=== PATIENT | male | born 1940 | race Two or more races ===

== ENCOUNTER 2016-12-08 13:04 | Emergency (ER) | payer OTHER ==
[~2016-12-08] VITALS: Ht 165.1 cm; Wt 81.6 kg
[2016-12-08 13:26] VITALS: BP 150/83
[2016-12-08 14:20] LABS: Basophils # (auto) 0.1 uL; Basophils % (auto) 0.6 % (0.0-2.0); Eosinophils # (auto) 0.1 uL; Hematocrit 42.6 % (41.0-53.0); Hemoglobin 14.2 g/dL (13.5-17.5); Lymphocytes # (auto) 2.2 uL; Mean Corpuscular Hemoglobin 29.6 pg (28.0-32.0); Mean Corpuscular Hgb Conc. 33.3 g/dL (32.0-36.0); Mean Corpuscular Volume 88.8 fL (80.0-100.0); Mean Platelet Volume 7.5 fL (7.4-10.4); Monocytes # (auto) 1.2 uL; Monocytes % (auto) 13.5 % (0.0-12.0); Neutrophils # (auto) 5.6 uL; Neutrophils % (auto) 60.9 % (37.0-80.0); Platelet Count (auto) 339 10^3/uL (140-450); Red Cell Distribution Width 14.5 % (11.6-16.0); White Blood Cell 9.2 10^3/uL (4.4-10.8)
== END 2016-12-08 15:16 | disposition home or self-care (01) ==
LOC: ER 13:10
DX: J40 Bronchitis, not specified as acute or chronic (principal); E78.5 Hyperlipidemia, unspecified
CPT/HCPCS: 36415; 71020; 85025

== ENCOUNTER 2019-12-20 15:56 | Emergency (ER) | payer OTHER ==
[~2019-12-20] VITALS: Ht 165.1 cm; Wt 78.5 kg
[2019-12-20 16:32] LABS: Urine Bacteria FEW /hpf (None Seen); Urine Blood Negative /uL (Negative); Urine Specific Gravity 1.003 (1.001-1.035); Urine Sperm PRESENT /hpf (None Seen); Urine WBC <1 /hpf (0 - 3)
[2019-12-20 19:07] VITALS: BP 183/98
[2019-12-20] MEDS ORDERED: cloNIDine HCL 0.1 MG TAB PO ONE (19:30)
== END 2019-12-20 20:00 | disposition home or self-care (01) ==
LOC: ER 16:11
DX: I10 Essential (primary) hypertension (principal); E78.5 Hyperlipidemia, unspecified
CPT/HCPCS: 81001

== ENCOUNTER 2019-12-22 14:14 | Emergency (ER) | payer OTHER ==
[~2019-12-22] VITALS: Ht 165.1 cm; Wt 75.7 kg
[2019-12-22 14:48] VITALS: BP 141/74
== END 2019-12-22 17:15 | disposition home or self-care (01) ==
LOC: ER 14:14
DX: I10 Essential (primary) hypertension (principal); E78.5 Hyperlipidemia, unspecified

== ENCOUNTER 2021-12-01 18:45 | Inpatient (IN) | payer OTHER, MEDICAID ==
[~2021-12-01] VITALS: Ht 167.6 cm; Wt 79.0 kg
[2021-12-01] MEDS ORDERED: ONDANSETRON HCL 4 MG/2 ML VIAL ONE (19:43)
[2021-12-01] MEDS ORDERED: ONDANSETRON HCL 4 MG/2 ML VIAL IV ONE (19:45)
[2021-12-01 22:39] LABS: Basophils # (auto) 0.1 10 ^3/uL (0-0.2); Basophils % (auto) 0.9 % (0.0-2.0); Eosinophils # (auto) 0 10 ^3/uL (0-0.8); Hematocrit 33.9 % (41.0-53.0); Hemoglobin 12.3 g/dL (13.5-17.5); Lymphocytes # (auto) 0.7 10 ^3/uL (0.4-5.4); Lymphocytes % (auto) 5.6 % (10.0-50.0); Mean Corpuscular Hemoglobin 31.5 pg (28.0-32.0); Mean Corpuscular Hgb Conc. 36.4 g/dL (32.0-36.0); Mean Corpuscular Volume 86.4 fL (80.0-100.0); Monocytes # (auto) 0.6 10 ^3/uL (0-1.3); Monocytes % (auto) 5.2 % (0.0-12.0); Neutrophils # (auto) 10.9 10 ^3/uL (1.6-8.6); Neutrophils % (auto) 88.3 % (37.0-80.0); Nucleated Red Blood Cells % 0.1 %; Red Blood Cells 3.92 10^6/uL (4.5-5.90); Red Cell Distribution Width 13.3 % (11.8-14.3); White Blood Cell 12.4 10^3/uL (4.4-10.8)
[2021-12-01 22:44] LABS: Albumin 4.2 g/dL (3.4-5.0)
[2021-12-01 22:53] LABS: BUN/Creatinine Ratio 14.3; Bilirubin, Total 1.1 mg/dL (0.2-1.0); Calcium 8.7 mg/dL (8.5-10.1); Total Protein 8.1 g/dL (6.4-8.2)
[2021-12-01 23:02] LABS: Potassium 2.9 mmol/L (3.5-5.1)
[2021-12-01] MEDS ORDERED: SOD CHL 0.9%/ KCL 40MEQ 1,000 ML IV ONE (23:30)
[2021-12-01] MEDS ORDERED: POTASSIUM CHL 20MEQ/50ML 50 ML IV ONE (23:45)
[2021-12-01] MEDS ORDERED: SODIUM CHLORIDE 0.9% 1,000 ML IV ONE (23:45)
[2021-12-02] MEDS ORDERED: MORPHINE SULFATE INJECTION 2 MG/ML SYRG IV PRN (00:45)
[2021-12-02] MEDS ORDERED: SODIUM CHL 3% 500 ML IV ONE (00:45)
[2021-12-02] MEDS ORDERED: ACETAMINOPHEN 325 MG TAB PO PRN (00:45)
[2021-12-02] MEDS ORDERED: ONDANSETRON HCL 4 MG/2 ML VIAL IV PRN (00:45)
[2021-12-02] MEDS ORDERED: NITROGLYCERIN 0.4 MG SL TAB SL PRN (00:45)
[2021-12-02] MEDS ORDERED: POTASSIUM CHL 20 Meq TABLET PO ONE (00:45)
[2021-12-02] MEDS ORDERED: DEXTROSE (50%) 50ML SYRG IV PRN (00:45)
[2021-12-02 03:52] LABS: Hematocrit 30.7 % (41.0-53.0); Hemoglobin 11.7 g/dL (13.5-17.5)
[2021-12-02 06:43] LABS: Urine Bacteria NONE SEEN /hpf (None Seen); Urine Blood Negative /uL (Negative); Urine Specific Gravity 1.017 (1.001-1.035); Urine WBC 1 /hpf (0 - 3)
[2021-12-02] MEDS: InsuLIN REG 1unit/0.01ml Soln (100units/ml) SC SCH ×4 (07:00→21:20)
[2021-12-02] MEDS: ACCU-CHEK COMFORT CURVE STRIP VI SCH ×4 (07:51→21:20)
[2021-12-02] MEDS ORDERED: cefTRIAXone 1GM/50ML D5W 50 ML IV SCH (08:00)
[2021-12-02] MEDS ORDERED: PANTOPRAZOLE 40 MG TAB PO SCH (10:00)
[2021-12-02] MEDS: METOPROLOL SUCCINATE XL 50 MG TAB PO SCH (10:00)
[2021-12-02] MEDS: LOSARTAN POTASSIUM 50 MG TAB PO SCH (10:42)
[2021-12-02] MEDS: amLODIPine BESYLATE 5 MG TAB PO SCH (10:42)
[2021-12-02] MEDS: ENOXAPARIN SOD 40 MG/0.4 ML SYRINGE SC SCH (10:43)
[2021-12-02 12:21] LABS: Lactic Acid w/Reflex 2.3 mmol/L (0.4-2.0)
[2021-12-02 13:58] LABS: Basophils # (auto) 0 10 ^3/uL (0-0.2); Basophils % (auto) 0.1 % (0.0-2.0); Eosinophils # (auto) 0 10 ^3/uL (0-0.8); Eosinophils % (auto) 0.1 % (0.0-7.0); Hematocrit 31.6 % (41.0-53.0); Hemoglobin 11.6 g/dL (13.5-17.5); Lymphocytes # (auto) 1.2 10 ^3/uL (0.4-5.4); Lymphocytes % (auto) 10.6 % (10.0-50.0); Mean Corpuscular Hemoglobin 31.4 pg (28.0-32.0); Mean Corpuscular Hgb Conc. 36.7 g/dL (32.0-36.0); Mean Corpuscular Volume 85.6 fL (80.0-100.0); Monocytes # (auto) 1.2 10 ^3/uL (0-1.3); Monocytes % (auto) 10.2 % (0.0-12.0); Neutrophils # (auto) 9.2 10 ^3/uL (1.6-8.6); Red Blood Cells 3.69 10^6/uL (4.5-5.90); Red Cell Distribution Width 13.5 % (11.8-14.3); White Blood Cell 11.6 10^3/uL (4.4-10.8)
[2021-12-02] MEDS ORDERED: POTASSIUM CHLORIDE 20 MEQ, LIDOCAINE 1% (LOCAL ANESTH.) 2 ML in SODIUM CHL 0.9% 100 ML IV ONE (14:15)
[2021-12-02] MEDS ORDERED: POTASSIUM EFFERVESENT TAB 25 MEQ PO ONE (14:15)
[2021-12-02] MEDS ORDERED: SODIUM CHLORIDE 0.9% 1,000 ML IV SCH (16:00)
[2021-12-02] MEDS ORDERED: MAGNESIUM SULFATE 1GM/100ML 100 ML IV ONE (16:00)
[2021-12-02] MEDS ORDERED: AML5T GT (16:45)
[2021-12-02] MEDS ORDERED: HYDR25TA5 GT (16:45)
[2021-12-02] MEDS ORDERED: TEMA15CA PO (16:45)
[2021-12-02] MEDS ORDERED: LOSA-39 PO (16:45)
[2021-12-02] MEDS ORDERED: ATOR40TA52 PO (16:45)
[2021-12-02] MEDS ORDERED: METF-370 PO (16:45)
[2021-12-02] MEDS ORDERED: METO25TA93 PO (16:45)
[2021-12-02 17:00] VITALS: BP 115/69
[2021-12-02 22:00] VITALS: BP 142/73
[2021-12-02] MEDS ORDERED: ATORVASTATIN 20 MG TAB PO SCH (22:00)
[2021-12-03 05:00] VITALS: BP 163/95
[2021-12-03 06:17] LABS: Albumin 3.5 g/dL (3.4-5.0); Potassium 3.3 mmol/L (3.5-5.1)
[2021-12-03 06:19] LABS: BUN/Creatinine Ratio 19.5
[2021-12-03 06:22] LABS: Bilirubin, Total 0.6 mg/dL (0.2-1.0); Total Protein 6.6 g/dL (6.4-8.2)
[2021-12-03] MEDS: ACCU-CHEK COMFORT CURVE STRIP VI SCH ×2 (06:26→11:21)
[2021-12-03] MEDS: InsuLIN REG 1unit/0.01ml Soln (100units/ml) SC SCH ×2 (06:26→11:22)
[2021-12-03 06:33] LABS: Basophils # (auto) 0.1 10 ^3/uL (0-0.2); Basophils % (auto) 0.8 % (0.0-2.0); Eosinophils # (auto) 0 10 ^3/uL (0-0.8); Hematocrit 32.9 % (41.0-53.0); Hemoglobin 11.9 g/dL (13.5-17.5); Lymphocytes # (auto) 1.4 10 ^3/uL (0.4-5.4); Lymphocytes % (auto) 19.1 % (10.0-50.0); Mean Corpuscular Hemoglobin 31.5 pg (28.0-32.0); Mean Corpuscular Volume 87.6 fL (80.0-100.0); Monocytes % (auto) 13.4 % (0.0-12.0); Neutrophils # (auto) 4.8 10 ^3/uL (1.6-8.6); Neutrophils % (auto) 66.7 % (37.0-80.0); Nucleated Red Blood Cells % 0.1 %; Red Blood Cells 3.76 10^6/uL (4.5-5.90); Red Cell Distribution Width 13.8 % (11.8-14.3); White Blood Cell 7.2 10^3/uL (4.4-10.8)
[2021-12-03 08:00] VITALS: BP 153/73
[2021-12-03] MEDS: METOPROLOL SUCCINATE XL 50 MG TAB PO SCH (08:50)
[2021-12-03] MEDS: LOSARTAN POTASSIUM 50 MG TAB PO SCH (08:51)
[2021-12-03] MEDS: amLODIPine BESYLATE 5 MG TAB PO SCH (08:51)
[2021-12-03] MEDS: ENOXAPARIN SOD 40 MG/0.4 ML SYRINGE SC SCH (08:52)
[2021-12-03 11:55] VITALS: BP 126/74
[2021-12-03] MEDS ORDERED: POTASSIUM CHL 20 Meq TABLET PO ONE (12:00)
[2021-12-03 16:00] VITALS: BP 139/65
== END 2021-12-03 18:00 | disposition home or self-care (01) | DRG 641 ==
LOC: EDUNIT# 18:45 → EDBD 18:45 → ER 18:53 → TELE 12-02 00:42 → TELE-WESTW 12-02 16:22
PROVIDERS: ADMIT Nurse Practitioner; ATTEND Internal Medicine
DX: E87.1 Hypo-osmolality and hyponatremia (principal); E87.6 Hypokalemia; E11.9 Type 2 diabetes mellitus without complications; D72.829 Elevated white blood cell count, unspecified; K40.90 Unilateral inguinal hernia, without obstruction or gangrene, not specified as recurrent; K44.9 Diaphragmatic hernia without obstruction or gangrene; N40.0 Benign prostatic hyperplasia without lower urinary tract symptoms; D64.9 Anemia, unspecified; E78.00 Pure hypercholesterolemia, unspecified; T50.2X5A Adverse effect of carbonic-anhydrase inhibitors, benzothiadiazides and other diuretics, initial encounter; R42 Dizziness and giddiness; Z20.822 Contact with and (suspected) exposure to COVID-19; I10 Essential (primary) hypertension
CPT/HCPCS: 36415; 70450; 71045; 74176; 80053; 81001; 82962; 83605; 83690; 83735; 83880; 84132; 84295; 84300; 84484; 85014; 85018; 85025; 87426; 93005; 93306; 96361; 96374; G0378; J0696; J2001; J2405

== ENCOUNTER 2022-10-22 17:47 | Emergency (ER) | payer OTHER, MEDICAID ==
[~2022-10-22] VITALS: Ht 172.7 cm; Wt 95.0 kg
[~2022-10-22 17:47] MED LIST: AML5T GT; ATOR40TA52 PO; LOSA-39 PO; METF-370 PO; METO25TA93 PO; TEMA15CA PO
[2022-10-22 18:48] LABS: Basophils # (auto) 0 10 ^3/uL (0-0.2); Basophils % (auto) 0.6 % (0.0-2.0); Eosinophils # (auto) 0 10 ^3/uL (0-0.8); Eosinophils % (auto) 0.6 % (0.0-7.0); Hematocrit 41.9 % (41.0-53.0); Hemoglobin 14.3 g/dL (13.5-17.5); Lymphocytes # (auto) 1.7 10 ^3/uL (0.4-5.4); Lymphocytes % (auto) 24.6 % (10.0-50.0); Mean Corpuscular Hemoglobin 31.3 pg (28.0-32.0); Mean Corpuscular Hgb Conc. 34.1 g/dL (32.0-36.0); Mean Corpuscular Volume 91.5 fL (80.0-100.0); Monocytes # (auto) 0.8 10 ^3/uL (0-1.3); Monocytes % (auto) 12.3 % (0.0-12.0); Neutrophils # (auto) 4.2 10 ^3/uL (1.6-8.6); Neutrophils % (auto) 61.9 % (37.0-80.0); Red Blood Cells 4.58 10^6/uL (4.5-5.90); Red Cell Distribution Width 13.9 % (11.8-14.3); White Blood Cell 6.7 10^3/uL (4.4-10.8)
[2022-10-22 19:04] LABS: INR 1.01 (0.9-1.15); Partial Thromboplastin Time 27.9 sec (24.6-33.4)
[2022-10-22 19:06] LABS: Albumin 4.2 g/dL (3.4-5.0); BUN/Creatinine Ratio 21.1; Calcium 9.7 mg/dL (8.5-10.1); Potassium 3.7 mmol/L (3.5-5.1)
[2022-10-22 19:09] LABS: Bilirubin, Total 0.5 mg/dL (0.2-1.0); Total Protein 8.4 g/dL (6.4-8.2)
[2022-10-22] MEDS ORDERED: levoFLOXacin 500MG 100 ML IV ONE (20:00)
[2022-10-22 20:42] LABS: Urine Bacteria NONE SEEN /hpf (None Seen); Urine Blood Negative /uL (Negative); Urine Specific Gravity 1.005 (1.001-1.035); Urine WBC 1 /hpf (0 - 3)
[2022-10-22 23:00] VITALS: BP 140/78
[2022-10-22] MEDS ORDERED: metFORMIN HYDROCHLORIDE 500 MG TAB PO ONE (23:30)
== END 2022-10-23 01:09 | disposition home or self-care (01) ==
LOC: ER 17:47 → EDBD 17:47 → ER 10-23 01:09
DX: A41.9 Sepsis, unspecified organism (principal); N39.0 Urinary tract infection, site not specified; J84.89 Other specified interstitial pulmonary diseases; R41.82 Altered mental status, unspecified; E11.9 Type 2 diabetes mellitus without complications; I10 Essential (primary) hypertension; E78.5 Hyperlipidemia, unspecified; Z79.899 Other long term (current) drug therapy; Z20.822 Contact with and (suspected) exposure to COVID-19
CPT/HCPCS: 36415; 70450; 71045; 80053; 81001; 82962; 83880; 84443; 84484; 85025; 85610; 85730; 87040; 87426; 87804; 87807; 93005; 96365; 99284; J1956

== ENCOUNTER 2024-12-05 23:27 | Emergency (ER) | payer OTHER, MEDICAID ==
[~2024-12-05] VITALS: Ht 162.6 cm; Wt 77.9 kg
[~2024-12-05 23:27] MED LIST changes: -LOSA-39 PO; +LOSA-535 PO
[2024-12-06 00:19] LABS: Basophils # (auto) 0.1 10 ^3/uL (0-0.2); Basophils % (auto) 1.2 % (0.0-2.0); Eosinophils # (auto) 0.1 10 ^3/uL (0-0.8); Hematocrit 41.4 % (41.0-53.0); Hemoglobin 14.1 g/dL (13.5-17.5); Lymphocytes # (auto) 1.5 10 ^3/uL (0.4-5.4); Mean Corpuscular Hemoglobin 30.7 pg (28.0-32.0); Mean Corpuscular Volume 90.3 fL (80.0-100.0); Monocytes # (auto) 1.1 10 ^3/uL (0-1.3); Monocytes % (auto) 10.3 % (0.0-12.0); Neutrophils # (auto) 7.8 10 ^3/uL (1.6-8.6); Neutrophils % (auto) 73.5 % (37.0-80.0); Platelet Count (auto) 271 10^3/uL (140-450); Red Blood Cells 4.58 10^6/uL (4.5-5.90); White Blood Cell 10.6 10^3/uL (4.4-10.8)
--- NOTE | 2024-12-06 00:21 | ED.PDOC ---
General HPI Comments HPI: Poor Historian. 84-year-old male presents to the emergency department for Hoyos catheter dysfunction. Patient had his Hoyos catheter replaced this morning at a [facility] clinic. Patient has been having this Hoyos catheter for the at least the last eight months. Today he went for his routine replacement. Patient noticed some bleeding in his Hoyos catheter bag proximally 2 hours after the insertion of the new Hoyos. Patient has not been able to void any urine from his Hoyos catheter and he came here to the ER for evaluation. Initially patient was tachycardic and in some distress. We flushed the Hoyos catheter and inflated the balloon and patient was able to void urine normally in his symptoms have resolved. The color of the bag urine is serosanguineous. Patient is on aspirin only. Patient states that he was given a prescription of antibiotics after the Hoyos catheter replacement today at the clinic. Past Medcial History: Diabetes, hypertension, hyperlipidemia, indwelling Hoyos catheter. Past Surgical History: Eye surgery, hernia surgery. REVIEW OF SYSTEMS: CONSTITUTIONAL: Denies acute: fever, diaphoresis, chills, generalized weakness. HEAD: Denies acute: headache, photophobia Eyes: Denies acute: Double vision, vision loss, eye pain, eye discharge. EARS: Denies acute: tinnitus, hearing loss, ear discharge, ear pain, THROAT: Denies acute: sore throat, swelling, difficulty swallowing , pain with swallowing, change in voice. NECK: Denies acute: neck pain, neck swelling, stiff neck. HEART: Denies acute : chest pain, palpitations, LUNGS: Denies acute: SOB, wheezing, cough, hemoptysis ABDOMEN: Denies acute: abdominal pain, Nausea, Vomiting, diarrhea, melena , hematemesis, hematochezia SKIN: Denies acute: rash, redness, lesions, itchiness. EXTREMITIES: Denies acute: calf pain, numbness, tingling, weakness, denies pain in extremity. Denies acute: Low back pain. Neuro: Denies acute: focal neurological deficit, motor or sensory focal neurological deficit, tremors, seizure like activity, confusion, dizziness, change in mental status, loss of bowel or bladder function, cauda equina like symptoms. : Denies acute: dysuria, hematuria, flank pain, increase in urinary frequency. PSYCH: Denies acute: hallucination, suicidal ideation, homicidal ideation. PHYSICAL EXAM: General: no acute distress, awake and alert. Head: normocephalic, atraumatic. Neck: supple, trachea is midline, no swelling. Throat: Normal phonation. Eyes:, no erythema, no purulent discharge, no proptosis, no icterus. Heart: regular rate, regular rhythm, no significant murmur appreciated. Lungs: no apparent respiratory distress, Able to speak in full sentences. No wheezing, no rhonchi, no crackles. No stridors Clear to auscultation bilaterally. Abdomen: non tender to palpation, non distended, soft, no guarding, no rebound, + bowel sounds. Neuro: Awake, Alert, oriented to name, self, situation, follows commands GCS=15. Speech is normal. Skin: no petechia, no purpura, no cyanosis, non-pale, not jaundice. Lower extremities: --no - Pitting edema no deformity, no focal swelling, no calf TTP. Makes eye contact. moves all four extremities. Face: no apparent facial droop. Ambulating in the ED independently. Time Seen by MD: 23:56 Primary Care Provider: NONE Reviewed notes: Nurses Notes, Allergies Allergies: Coded Allergies: NO KNOWN ALLERGIES (Unverified , 12/08/16) Home Meds Reported Medications Atorvastatin Calcium (ATORVASTATIN CALCIUM) 40 Mg Tab, 40 MG PO DAILY, TAB 12/02/21 Temazepam (Temazepam) 15 Mg Cap, 15 MG PO, CAP 12/02/21 Losartan Potassium (Losartan Potassium) 100 Mg Tab, 100 MG PO, TAB 12/02/21 Metoprolol Succinate (Metoprolol Succinate Er) 25 Mg Tab, 25 MG PO, TAB 12/02/21 Metformin Hydrochloride (Metformin Hcl) 500 Mg Tab, 500 MG PO, TAB 12/02/21 Amlodipine Besylate (NORVASC TABLET) 5 Mg Tb, 5 MG GT, TAB 12/02/21 Information Source: Patient Past Medical History PAST MEDICAL HISTORY: DM, High Lipids, HTN Surgical History: Denies all surgeries Family History Family History: Reviewed,noncontributory to illness Social History Smoker: Non-Smoker Alcohol: Denies ETOH Use Drugs: Denies Drug Use Lives In: Home X-Ray, Labs, Meds, VS Vital Signs Date Time Temp Pulse Resp B/P (MAP) Pulse Ox O2 Delivery O2 Flow Rate FiO2 1/7/25 23:50 98.4 117 18 144/87 (106) 96 Lab Test 12/06/24 00:08 Range/Units White Blood Count 10.6 4.4-10.8 10^3/uL Red Blood Count 4.58 4.5-5.90 10^6/uL Hemoglobin 14.1 13.5-17.5 g/dL Hematocrit 41.4 41.0-53.0 % Mean Corpuscular Volume 90.3 80.0-100.0 fL Mean Corpuscular Hemoglobin 30.7 28.0-32.0 pg Mean Corpuscular Hemoglobin Concent 34.0 32.0-36.0 g/dL Red Cell Distribution Width 15.0 H 11.8-14.3 % Platelet Count 271 140-450 10^3/uL Mean Platelet Volume 7.3 6.9-10.8 fL Neutrophils (%) (Auto) 73.5 37.0-80.0 % Lymphocytes (%) (Auto) 14.0 10.0-50.0 % Monocytes (%) (Auto) 10.3 0.0-12.0 % Eosinophils (%) (Auto) 1.0 0.0-7.0 % Basophils (%) (Auto) 1.2 0.0-2.0 % Neutrophils # (Auto) 7.8 1.6-8.6 10 ^3/uL Lymphocytes # (Auto) 1.5 0.4-5.4 10 ^3/uL Monocytes # (Auto) 1.1 0-1.3 10 ^3/uL Eosinophils # (Auto) 0.1 0-0.8 10 ^3/uL Basophils # (Auto) 0.1 0-0.2 10 ^3/uL Nucleated Red Blood Cells 0.0 % Sodium Level 134 L 136-145 mmol/L Potassium Level 3.5 3.5-5.1 mmol/L Chloride Level 99 98-107 mmol/L Carbon Dioxide Level 27 20-31 mmol/L Anion Gap 8 5-15 Blood Urea Nitrogen 21 9-23 mg/dL Creatinine 1.16 0.700-1.30 mg/dL Glomerular Filtration Rate Calc 63 >90 mL/min BUN/Creatinine Ratio 18.1 10.0-20.0 Serum Glucose 132 H 74-106 mg/dL Calcium Level 10.6 H 8.7-10.4 mg/dL Total Bilirubin 0.9 0.2-1.0 mg/dL Aspartate Amino Transferase (AST) 28 13-40 U/L Alanine Aminotransferase (ALT) 29 7-40 U/L Alkaline Phosphatase 79 46-116 U/L Total Protein 7.9 5.7-8.2 g/dL Albumin 4.4 3.2-4.8 g/dL Departure 1 Departure Time of Disposition: 00:21 Impression: Primary Impression: Hoyos catheter problem Disposition: HOME / SELF CARE / HOMELESS Condition: Stable Additional Instructions: Additional discharge instructions: You MUST follow-up with your primary care/family doctor in 1 to 2 days. If you are unable to see your primary care/family doctor, please return to our emergency room for re-assessment and re-evaluation in 1 to 2 days. Return to the emergency room here in our facility or to the nearest ER [facility] if your symptoms change or worsen. CONSULTATIONS: you MUST Follow-up for consultation as soon as possible with: --urology in 1-2 days. Please call for appointment. You MUST call the consultants office yourself to make an appointment. You may need to arrange that through your insurance and/or your primary/family doctor. If you are unable to see the [facility] consultant in 1 to 2 days, you must return to our emergency room (or any other ER of your choice) for re-assessment and re- evaluation. Adequate fluid hydration. Discharged With: Self JUAN ALBERTO IBARRA DO Dec 06, 2024 00:21
[2024-12-06 00:34] LABS: Alanine Aminotransferase 29 U/L (7-40); Albumin 4.4 g/dL (3.2-4.8); Alkaline Phosphatase 79 U/L (46-116); Anion Gap 8 (5-15); Aspartate Aminotransferase 28 U/L (13-40); BUN/Creatinine Ratio 18.1 (10.0-20.0); Blood Urea Nitrogen 21 mg/dL (9-23); Carbon Dioxide 27 mmol/L (20-31); Chloride 99 mmol/L (98-107); Potassium 3.5 mmol/L (3.5-5.1)
[2024-12-06 00:35] LABS: Bilirubin, Total 0.9 mg/dL (0.2-1.0); Total Protein 7.9 g/dL (5.7-8.2)
[2024-12-06 00:44] LABS: Calcium 10.6 mg/dL (8.7-10.4); Glucose 132 mg/dL (74-106); Sodium 134 mmol/L (136-145)
[2024-12-06 02:09] VITALS: BP 157/85; PULSE 98; RESP 16; TEMP 97.5; O2SAT 96
== END 2024-12-06 02:35 | disposition home or self-care (01) ==
LOC: ER 23:27
DX: T83.038A Leakage of other urinary catheter, initial encounter (principal); E11.9 Type 2 diabetes mellitus without complications; E78.5 Hyperlipidemia, unspecified; I10 Essential (primary) hypertension; Z98.890 Other specified postprocedural states
CPT/HCPCS: 36415; 80053; 85025

== ENCOUNTER 2025-01-12 23:15 | Emergency (ER) | payer OTHER, MEDICAID ==
[~2025-01-12] VITALS: Ht 165.1 cm; Wt 76.9 kg
[2025-01-12 23:26] VITALS: BP 149/89; PULSE 108; RESP 18; O2SAT 99
[2025-01-13 00:12] LABS: Urine Bacteria FEW /hpf (None Seen); Urine Blood 3+ /uL (Negative); Urine Clarity Turbid (Clear); Urine Color Red (Yellow); Urine Protein, UAD 2+ (Negative); Urine Specific Gravity 1.012 (1.001-1.035); Urine Squamous Epithelial Cell None Seen /hpf (<5); Urine Urobilinogen Normal (Negative); Urine WBC 68 /HPF (0-3); Urine pH 6.5 (5.0-9.0)
--- NOTE | 2025-01-13 00:48 | DVH ---
INDICATION: Bilateral inguinal hernias TECHNIQUE: Multiple real-time grayscale transabdominal sonographic images of the pelvis. COMPARISON: None Findings/ IMPRESSION: Right-sided inguinal hernia measuring 1.9 cm with a 0.6 cm defect in the associated wall. Left-sided inguinal hernia demonstrating possible herniated loop of small bowel. These findings can be confirmed with CT if clinically indicated.
[2025-01-13] MEDS ORDERED: TRAM50TA2 PO (01:49)
[2025-01-13] MEDS ORDERED: ACET500T58 PO (01:49)
[2025-01-13] MEDS ORDERED: LEVO500T91 PO (01:49)
--- NOTE | 2025-01-13 01:50 | ED.PDOC ---
General Chief Complaint: Urinary Comments This patient is a pleasant Maldivian-speaking only 84-year-old male who was brought in by his son today for evaluation of urine retention concerns and pelvic swelling issues. Patient has a year long history of multiple complaints. According to the son, patient received bilateral inguinal hernia repair approximately one year ago. Son states the patient has had swelling and pain for the past several months. Additionally, according to the son, patient had a prostatectomy performed which sounds like a TURP procedure. Patient had a Hoyos catheter in place for an extended time that was removed approximately five days ago. Son states the patient has been displaying hematuria as well as difficulty urinating since this morning. Son denies any fever nausea or vomiting. Vital signs were stable on arrival. Time Seen by MD: 23:17 Primary Care Provider: NONE Reviewed notes: Nurses Notes Allergies: Coded Allergies: NO KNOWN ALLERGIES (Unverified , 12/08/16) Home Meds Reported Medications Atorvastatin Calcium (ATORVASTATIN CALCIUM) 40 Mg Tab, 40 MG PO DAILY, TAB 12/02/21 Temazepam (Temazepam) 15 Mg Cap, 15 MG PO, CAP 12/02/21 Losartan Potassium (Losartan Potassium) 100 Mg Tab, 100 MG PO, TAB 12/02/21 Metoprolol Succinate (Metoprolol Succinate Er) 25 Mg Tab, 25 MG PO, TAB 12/02/21 Metformin Hydrochloride (Metformin Hcl) 500 Mg Tab, 500 MG PO, TAB 12/02/21 Amlodipine Besylate (NORVASC TABLET) 5 Mg Tb, 5 MG GT, TAB 12/02/21 Information Source: Patient, Relative (Child) Mode of Arrival: Ambulatory Severity: Moderate Timing: Hours, Months Duration: Since onset Prehospital treatment: None Onset: Spontaneous Symptoms: Inability to void History of: Other (Long-term Hoyos catheter placement due to prostatectomy.) Location: Abdomen associated signs and symptoms: Abdominal Pain, Inability to Void Past Medical History PAST MEDICAL HISTORY: DM, High Lipids, HTN Past Medical History (Other): Prostate ectomy and long-term Hoyos catheter placement. Surgical History: Hernia Repair Surgical History (Other): History of bilateral inguinal hernia repair Family History Family History: Reviewed,noncontributory to illness Social History Smoker: Non-Smoker Alcohol: Denies ETOH Use Drugs: Denies Drug Use Lives In: Home Constitutional: denies: chills, diaphoresis, fatigue, fever, malaise, sweats, weakness, others EENTM: denies: blurred vision, double vision, ear bleeding, ear discharge, ear drainage, ear pain, ear ringing, eye pain, eye redness, hearing loss, mouth pain, mouth swelling, nasal discharge, nose bleeding, nose congestion, nose pain, photophobia, tearing, throat pain, throat swelling, voice changes, others Respiratory: denies: cough, hemoptysis, orthopnea, SOB at rest, shortness of breath, SOB with excertion, stridor, wheezing, others Cardiovascular: denies: chest pain, dizzy spells, diaphoresis, Dyspnea on exertion, edema, irregular heart beat, left arm pain, lightheadedness, palpitations, PND, syncope, others Gastrointestinal: denies: abdomen distended, abdominal pain, blood streaked bowels, constipated, diarrhea, dysphagia, difficulty swallowing, hematemesis, melena, nausea, poor appetite, poor fluid intake, rectal bleeding, rectal pain, vomiting, others Genitourinary: reports: others (Urine retention. Bilateral inguinal swelling); denies: burning, dysuria, flank pain, frequency, hematuria, incontinence, penile discharge, penile sore, pain, testicle pain, testicle swelling, urgency Neurological: denies: dizziness, fainting, headache, left sided numbness, left sided weakness, numbness, paresthesia, pre-existing deficit, right sided numbness, right sided weakness, seizure, speech problems, tingling, tremors, weakness, others Musculoskeletal: denies: back pain, gout, joint pain, joint swelling, muscle pain, muscle stiffness, neck pain, others Integumetry: denies: bruises, change in color, change in hair/nails, dryness, laceration, lesions, lumps, rash, wounds, others Allergic/Immunocompromised: denies: Difficulty Healing, Frequent Infections, Hives, Itching, others Hematologic/Lymphatic: denies: anemia, blood clots, easy bleeding, easy bruising, swollen glands, others Endocrine: denies: excessive hunger, excessive sweating, excessive thirst, excessive urination, flushing, intolerance to cold, intolerance to heat, unexplained weight gain, unexplained weight loss, others Psychiatric: denies: anxiety, bipolar disorder, depression, hopeless, panic d isorder, schizophrenia, sleepless, suicidal, others Physical Exam General Appearance: Moderate Distress (Due to urine retention and inguinal pain.), Normal HEENT: Normal ENT Inspection, Pharynx Normal, TMs Normal Neck: Full Range of Motion, Non-Tender, Normal, Normal Inspection Respiratory: Chest Non-Tender, Lungs Clear, No Accessory Muscle Use, No Respiratory Distress, Normal Breath Sounds Cardiovascular: No Edema, No JVD, No Murmur, No Gallop, Normal Peripheral Pulses, Regular Rate/Rhythm Breast Exam: Deferred Gastrointestinal: No Organomegaly, Non Tender, No Pulsatile Mass, Normal Bowel Sounds, Soft Genitalia: Other (Bilateral inguinal swelling noted with left-sided greater than right. No edema or ecchymosis. Left-sided inguinal hernia was not reducible.) Pelvic: Deferred Rectal: Deferred Extremities: No calf tenderness, Normal capillary refill, Normal inspection, Normal range of motion, Non-tender, No pedal edema Neurologic: Alert, No Motor Deficits, Normal Affect, Normal Mood, No Sensory Deficits Cerebellar Function: Normal Reflexes: Normal Skin: Dry, Normal Color, Warm Lymphatic: No Adenopathy Was a procedure done? Was a procedure done?: No Differential Diagnosis Kidney stone (Female): Other (Bladder outlet obstruction, UTI, postoperative complications, inguinal hernia, incarcerated hernia, strangulated hernia) X-Ray, Labs, Meds, VS Vital Signs Date Time Temp Pulse Resp B/P (MAP) Pulse Ox O2 Delivery O2 Flow Rate FiO2 01/12/25 23:26 98.5 108 18 149/89 (109) 99 Lab Test 01/12/25 23:40 Range/Units Urine Color Red H Yellow Urine Clarity Turbid H Clear Urine pH 6.5 5.0-9.0 Urine Specific [place] 1.012 1.001-1.035 Urine Protein 2+ H Negative Urine Ketones Negative Negative Urine Blood 3+ H Negative /uL Urine Nitrite Negative Negative Urine Bilirubin Negative Negative Urine Urobilinogen Normal Negative mg/dL Urine Leukocyte Esterase 1+ Negative /uL Urine RBC 2677 0 - 3 /hpf Urine Microscopic WBC 68 H 0-3 /HPF Urine Squamous Epithelial Cells None seen <5 /hpf Urine Bacteria Few H None Seen /hpf Urine Glucose Normal Normal mg/dL X-Ray, Labs, Meds, VS Comment All studies performed in the ED were evaluated by me personally. Patient had a Hoyos catheter placed and we were able to extract 700 mL of blood-tinged urine. Urinalysis confirmed a UTI. Ultrasound studies confirmed a bilateral inguinal hernia without incarceration or strangulation. Patient was given his 1st dose of antibiotics tonight and has been advised to utilize antibiotics as directed. Patient will need to follow up with his primary care provider and urologist to address his continued urine retention concerns status post prostatectomy and additionally, patient will need to follow up with his inguinal hernia surgeon to address the failed inguinal hernia repairs. Patient will be sent home with a indwelling Hoyos catheter and leg bag. Time of 1ST Reevaluation: 01:46 Reevaluation 1ST: Improved Consultation: PCP, Urology, Surgery Patient Education/Counseling: Diagnosis, Treatment Family Education/Counseling: Diagnosis, Treatment Departure 1 Departure Time of Disposition: 01:47 Impression: Primary Impression: Bladder outlet obstruction Additional Impressions: UTI (urinary tract infection) Bilateral inguinal hernia Disposition: HOME / SELF CARE / HOMELESS Condition: Stable Additional Instructions: Advise utilizing antibiotics as directed until completion as well as pain medication as needed. Patient will need to follow up with his urologist and primary care provider for discussions related to his continued bladder outlet obstruction concerns status post prostatectomy. Additionally, patient will need to follow up with his inguinal hernia surgeon for conversation is related to failed surgical interventions bilaterally. e-Prescriptions Tramadol Hcl (Tramadol Hcl) 50 Mg Tab 50 MG PO Q12HP PRN, #15 TAB Prov: RAFAELA EDDY PAC 01/13/25 Acetaminophen (Acetaminophen) 500 Mg Tab 500 MG PO Q4HP PRN, #30 TAB Prov: RAFAELA EDDY PAC 01/13/25 Levofloxacin Hemihydrate (LEVAQUIN 500 MG) 500 Mg Tab 1 TAB PO DAILY for 9 Days, #9 TAB Prov: RAFAELA EDDY PAC 01/13/25 Discharged With: Self, Relative Critical Care Note Critical Care Time?: No Stability Stability form required: No Heart Score Heart Score: Heart Score Response (Comments) Value History N/A 0 EKG N/A 0 Age N/A 0 Risk Factors N/A 0 Troponin N/A 0 Total 0 RAFAELA EDDY PAC Jan 13, 2025 01:50
[2025-01-13] MEDS: levoFLOXacin 500 MG TAB PO ONE (02:50)
== END 2025-01-13 02:55 | disposition home or self-care (01) ==
LOC: ER 23:15
DX: T83.098A Other mechanical complication of other urinary catheter, initial encounter (principal); N39.0 Urinary tract infection, site not specified; K40.20 Bilateral inguinal hernia, without obstruction or gangrene, not specified as recurrent; E11.9 Type 2 diabetes mellitus without complications; E78.5 Hyperlipidemia, unspecified; I10 Essential (primary) hypertension; Z79.899 Other long term (current) drug therapy; Z98.890 Other specified postprocedural states
CPT/HCPCS: 51702; 76856; 81001

== ENCOUNTER 2025-01-29 21:56 | Emergency (ER) | payer OTHER, MEDICAID ==
[~2025-01-29] VITALS: Ht 167.6 cm; Wt 81.8 kg
[~2025-01-29 21:56] MED LIST changes: +ACET500T58 PO; +LEVO500T91 PO; +TRAM50TA2 PO
--- NOTE | 2025-01-29 22:25 | ED.PDOC ---
History of Present Illness HPI Comments 84-year-old male with history of hypertension, diabetes, dyslipidemia and prostate enlargement brought in by EMS from home for evaluation of elevated blood pressure and headache. Patient states he developed the headache this afternoon around 1600, and this was associated with difficulty with word finding. He denies any vision changes or focal weakness. He does state he intermittently has felt somewhat lightheaded. He denies shortness of breath or chest pain. On arrival by EMS, they reported the patient's blood pressure has been 166/81, Accu-Chek was 137, and patient has been saturating 100% on room air. Patient also reports he had a prostate surgery recently and had a [place] catheter associated urinary tract infection for which he recently took antibiotics. He denies any dysuria, abdominal pain or fever. Chief Complaint: Headache Time Seen by MD: 22:04 Primary Care Provider: NONE Reviewed Notes: Nurses Notes, Press Operator Meat Notes, Medications, Allergies Allergies: Coded Allergies: NO KNOWN ALLERGIES (Unverified , 12/08/16) Home Meds Active Scripts Tramadol Hcl (Tramadol Hcl) 50 Mg Tab, 50 MG PO Q12HP PRN, #15 TAB Prov:RAFAELA EDDY PAC 01/13/25 Acetaminophen (Acetaminophen) 500 Mg Tab, 500 MG PO Q4HP PRN, #30 TAB Prov:RAFAELA EDDY PAC 01/13/25 Levofloxacin Hemihydrate (LEVAQUIN 500 MG) 500 Mg Tab, 1 TAB PO DAILY for 9 Days, #9 TAB Prov:RAFAELA EDDY PAC 01/13/25 Reported Medications Atorvastatin Calcium (ATORVASTATIN CALCIUM) 40 Mg Tab, 40 MG PO DAILY, TAB 12/02/21 Temazepam (Temazepam) 15 Mg Cap, 15 MG PO, CAP 12/02/21 Losartan Potassium (Losartan Potassium) 100 Mg Tab, 100 MG PO, TAB 12/02/21 Metoprolol Succinate (Metoprolol Succinate Er) 25 Mg Tab, 25 MG PO, TAB 12/02/21 Metformin Hydrochloride (Metformin Hcl) 500 Mg Tab, 500 MG PO, TAB 12/02/21 Amlodipine Besylate (NORVASC TABLET) 5 Mg Tb, 5 MG GT, TAB 12/02/21 Information Source: Patient, Emergency Med Personnel Mode of Arrival: EMS Severity: Moderate Timing: Hours Duration: Since onset Prehospital treatment: 12 Lead EKG, Accucheck, [employer] Wiring Technician Past Medical History PAST MEDICAL HISTORY: DM, High Lipids, HTN Past Medical History (Other): BPH Surgical History: Hernia Repair Surgical History (Other): Prostate Family History Family History: Reviewed,noncontributory to illness Social History Smoker: Non-Smoker Alcohol: Denies ETOH Use Drugs: Denies Drug Use Lives In: Home All Other Systems: Reviewed and Negative (Comprehensive systems review obtained and negative except for what is stated in the HPI.) Physical Exam General Appearance: No Apparent Distress HEENT: PERRL/EOMI, Other (Moist mucous membranes. No facial asymmetry. ) Neck: Full Range of Motion, Normal Inspection Respiratory: Lungs Clear, No Accessory Muscle Use, No Respiratory Distress, Normal Breath Sounds Cardiovascular: No Edema, No JVD, Regular Rate/Rhythm Breast Exam: Deferred Gastrointestinal: Non Tender, Soft Genitalia: Deferred Pelvic: Deferred Rectal: Deferred Extremities: Normal inspection, Normal range of motion, Non-tender, No pedal edema Neurologic: Alert (Oriented x4), No Motor Deficits, Normal Affect, Normal Mood, No Sensory Deficits, Other (No dysarthria. Speaks full sentences appropriately. No gross focal deficit.) Cerebellar Function: NOT DONE Reflexes: NOT DONE Skin: Dry, Normal Color, Warm Lymphatic: NOT DONE Was a procedure done? Was a procedure done?: No EKG EKG : Comments Sinus rhythm, rate 81, normal intervals, left axis deviation, normal QRS, nonspecific T changes. Differential Dx Considerations may include: Hypertensive encephalopathy, CVA, TIA, infection such as UTI, mi, renal failure, CHF, COPD, pneumonia, among others X-Ray, Labs, Meds, VS Vital Signs Date Time Temp Pulse Resp B/P (MAP) Pulse Ox O2 Delivery O2 Flow Rate FiO2 01/29/25 22:06 98.9 85 20 166/81 (109) 100 01/29/25 22:01 81 Lab Test 01/30/25 02:00 01/29/25 23:59 01/29/25 22:31 Range/Units Urine Color Straw Yellow Urine Clarity Clear Clear Urine pH 6.5 5.0-9.0 Urine Specific [place] 1.012 1.001-1.035 Urine Protein 1+ H Negative Urine Ketones Negative Negative Urine Blood 3+ H Negative /uL Urine Nitrite Negative Negative Urine Bilirubin Negative Negative Urine Urobilinogen Normal Negative mg/dL Urine Leukocyte Esterase 3+ Negative /uL Urine RBC 218 0 - 3 /hpf Urine Microscopic WBC 88 H 0-3 /HPF Urine Squamous Epithelial Cells Few <5 /hpf Urine Bacteria Few H None Seen /hpf Urine Glucose Normal Normal mg/dL Troponin I High Sensitivity 6 4 </=54 ng/L White Blood Count 6.6 4.4-10.8 10^3/uL Red Blood Count 3.77 L 4.5-5.90 10^6/uL Hemoglobin 11.6 L 13.5-17.5 g/dL Hematocrit 33.7 L 41.0-53.0 % Mean Corpuscular Volume 89.5 80.0-100.0 fL Mean Corpuscular Hemoglobin 30.8 28.0-32.0 pg Mean Corpuscular Hemoglobin Concent 34.4 32.0-36.0 g/dL Red Cell Distribution Width 14.5 H 11.8-14.3 % Platelet Count 322 140-450 10^3/uL Mean Platelet Volume 6.4 L 6.9-10.8 fL Neutrophils (%) (Auto) 61.3 37.0-80.0 % Lymphocytes (%) (Auto) 21.8 10.0-50.0 % Monocytes (%) (Auto) 15.8 H 0.0-12.0 % Eosinophils (%) (Auto) 0.6 0.0-7.0 % Basophils (%) (Auto) 0.5 0.0-2.0 % Neutrophils # (Auto) 4.1 1.6-8.6 10 ^3/uL Lymphocytes # (Auto) 1.4 0.4-5.4 10 ^3/uL Monocytes # (Auto) 1.0 0-1.3 10 ^3/uL Eosinophils # (Auto) 0 0-0.8 10 ^3/uL Basophils # (Auto) 0 0-0.2 10 ^3/uL Nucleated Red Blood Cells 0.0 % Sodium Level 128 L 136-145 mmol/L Potassium Level 3.6 3.5-5.1 mmol/L Chloride Level 92 L 98-107 mmol/L Carbon Dioxide Level 28 20-31 mmol/L Anion Gap 8 5-15 Blood Urea Nitrogen 18 9-23 mg/dL Creatinine 0.87 0.700-1.30 mg/dL Glomerular Filtration Rate Calc 86 >90 mL/min BUN/Creatinine Ratio 20.7 H 10.0-20.0 Serum Glucose 108 H 74-106 mg/dL Calcium Level 10.0 8.7-10.4 mg/dL B-Type Natriuretic Peptide 19.49 0-100 pg/mL [address] [address] Ph: [phone] DIAGNOSTIC IMAGING Diagnostic Imaging Report : [id number] Signed PATIENT: JUDITH MEDINA ACCT: [id number] UNIT: [id number] : 1940 LOC: ER ROOM / BED: / AGE / SEX: 84 / M ADM STATUS: REG ER SERVICE 15 ORDERING PHYSICIAN: BREANN LOPEZ MD PROCEDURE(s): HWOCT - HEAD WITHOUT CONTRAST REASON: headache, hi bp ORDER NUMBER(s): [id number], ACCESSION NUMBER(s): [id number] EXAM: CT HEAD WITHOUT CONTRAST INDICATION: headache, hi bp TECHNIQUE: CT of the head without intravenous contrast. Radiation Dose : 1. Head: CT Dose: CTDI volume is 56 mGy. Dose-length product is 1013 mGy*cm The dose indicators for CT are the volume Computed Tomography (CT) Dose Index (CTDIvol) and the Dose Length Product (DLP), and are measured in units of mGy and mGy-cm, respectively. These indicators are not patient dose, but values generated from the CT scanner acquisition factors. The report includes radiation exposure data for exposures received during this examination. COMPARISON: HEAD WITHOUT CONTRAST on DOS: 10/22/22, HEAD WITHOUT CONTRAST on DOS: 12/01/21 FINDINGS: There is no evidence of acute intracranial hemorrhage, extra-axial collection, mass effect, midline shift, herniation or hydrocephalus. The ventricles, sulci and cisterns are age appropriate. The rossi-white differentiation is intact. Patchy periventricular and subcortical white matter hypoattenuation is nonspecific but may be related to small vessel ischemic disease. The visualized paranasal sinuses and mastoid air cells are clear. The surrounding soft tissues and osseous structures are unremarkable. IMPRESSION: 1. No acute intracranial abnormality. Radiation optimization: All CT scans at this facility use at least one of these dose optimization techniques: automated exposure control mA and/or kV adjustment per patient size (includes targeted exams where dose is matched to clinical indication) or iterative reconstruction. ATED BY: MARK ALBRECHT MD DICTATED DATE/TIME: 01/29/252341 SIGNED BY: MARK ALBRECHT MD SIGNED DATE/TIME: 01/29/252341 CC: [place] [id number] Ph: [phone] DIAGNOSTIC IMAGING Diagnostic Imaging Report : [id number] Signed PATIENT: JUDITH MEDINA ACCT: [id number] UNIT: [id number] : 1940 LOC: ER ROOM / BED: / AGE / SEX: 84 / M ADM STATUS: REG ER SERVICE 15 ORDERING PHYSICIAN: BREANN LOPEZ MD PROCEDURE(s): CXRP - CHEST PORTABLE REASON: sob ORDER NUMBER(s): [id number], ACCESSION NUMBER(s): [id number] CHEST RADIOGRAPH Indication: sob Technique: Single frontal view of the chest was obtained COMPARISON: CHEST PORTABLE on DOS: 10/22/22, CXRP on DOS: 10/22/22, CHEST XRAY 1 VIEW on DOS: 12/03/21, CHEST PORTABLE on DOS: 12/02/21 FINDINGS: Lines and Tubes: None Lungs: Bibasilar atelectasis/ scarring. Superimposed pneumonia is difficult to exclude Pleura: No effusion. No pneumothorax. Cardiomediastinal contours: Unremarkable Bones: Unremarkable IMPRESSION: 1. Bibasilar atelectasis/ scarring. Superimposed pneumonia is difficult to ex clude ATED BY: MARK ALBRECHT MD DICTATED DATE/TIME: 01/29/252346 SIGNED BY: MARK ALBRECHT MD SIGNED DATE/TIME: 01/29/252346 CC: X-Ray, Labs, Meds, VS Comment 84-year-old male with history of hypertension, diabetes, dyslipidemia and prostate enlargement brought in by EMS from home for evaluation of elevated blood pressure and headache, associated with difficulty with word finding, onset around 1600 today Vitals remarkable for BP 166/81 Exam unremarkable Rhythm strip independently interpreted by me: Sinus rhythm, rate 81, no ectopy. CT head IMPRESSION: 1. No acute intracranial abnormality. Chest x-ray IMPRESSION: 1. Bibasilar atelectasis/ scarring. Superimposed pneumonia is difficult to exclude CBC unremarkable, BMP remarkable for sodium 128, chloride 92, BNP normal, 2 serial troponins negative, UA abnormal consistent with UTI Patient treated with the following in the ED: 1 L 0.9 normal saline IV bolus, Rocephin 1 g IV, Tylenol 650 mg p.o., hydralazine 2.5 mg IV On re-evaluation, blood pressure is reasonably controlled, headache has improved, other vitals were stable. Patient is conversant, is not having difficulty with word finding, and is at his normal baseline per son. He denies any chest pain, shortness a breath, fever, cough or sick contacts, so I am not concerned for pneumonia. Oxygen saturation is normal on room air. Hospitalization was considered, however patient had rapid improvement of symptoms with treatment in the ED, and I no longer feel hospitalization is necessary. Patient appears stable for discharge with close outpatient follow-up with his primary physician. Rx Keflex Time of 1ST Reevaluation: 22:34 Reevaluation 1ST: Unchanged Time of 2ND Reevaluation: 03:49 Reevaluation 2ND: Improved Patient Education/Counseling: Diagnosis, Treatment Family Education/Counseling: No Family Present Departure 1 Departure Time of Disposition: 03:49 Impression: Primary Impression: UTI (urinary tract infection) Qualified Codes: N39.0 - Urinary tract infection, site not specified Disposition: 01 HOME / SELF CARE / HOMELESS Condition: Stable Additional Instructions: Your blood tests showed low sodium. We have started to correct this in the ER by giving IV fluids. Your urine test showed you have a urinary tract infection. We have given IV antibiotics in the ER, and I have prescribed antibiotics to take at home. Your blood pressure is now controlled. Follow-up with your primary doctor in 1-2 days for repeat blood tests and re-evaluation. Return to ER for persistent or worsening symptoms. e-Prescriptions Cephalexin Monohydrate (Cephalexin) 500 Mg Cap 1 CAP PO QID for 10 Days, #40 CAP Prov: BREANN LOPEZ MD 01/30/25 Discharged With: Relative Critical Care Note Critical Care Time?: No Stability Stability form required: No Heart Score Heart Score: Heart Score Response (Comments) Value History N/A 0 EKG N/A 0 Age N/A 0 Risk Factors N/A 0 Troponin N/A 0 Total 0 I personally scribed for BREANN LOPEZ MD ([email or web address]) on 01/29/25 at 22:44. Electronically submitted by Diego Gracia ([email or web address]). I personally scribed for BREANN LOPEZ MD ([email or web address]) on 01/30/25 at 00:07. Electronically submitted by Diego Gracia ([email or web address]). BREANN LOPEZ MD Jan 29, 2025 22:25
[2025-01-29 23:04] LABS: Basophils # (auto) 0 10 ^3/uL (0-0.2); Basophils % (auto) 0.5 % (0.0-2.0); Eosinophils # (auto) 0 10 ^3/uL (0-0.8); Eosinophils % (auto) 0.6 % (0.0-7.0); Hematocrit 33.7 % (41.0-53.0); Hemoglobin 11.6 g/dL (13.5-17.5); Lymphocytes # (auto) 1.4 10 ^3/uL (0.4-5.4); Lymphocytes % (auto) 21.8 % (10.0-50.0); Mean Corpuscular Hemoglobin 30.8 pg (28.0-32.0); Mean Corpuscular Hgb Conc. 34.4 g/dL (32.0-36.0); Mean Corpuscular Volume 89.5 fL (80.0-100.0); Monocytes % (auto) 15.8 % (0.0-12.0); Neutrophils # (auto) 4.1 10 ^3/uL (1.6-8.6); Neutrophils % (auto) 61.3 % (37.0-80.0); Platelet Count (auto) 322 10^3/uL (140-450); Red Blood Cells 3.77 10^6/uL (4.5-5.90); Red Cell Distribution Width 14.5 % (11.8-14.3); White Blood Cell 6.6 10^3/uL (4.4-10.8)
[2025-01-29 23:17] LABS: Potassium 3.6 mmol/L (3.5-5.1)
[2025-01-29 23:18] LABS: Anion Gap 8 (5-15); Carbon Dioxide 28 mmol/L (20-31)
[2025-01-29 23:23] LABS: BUN/Creatinine Ratio 20.7 (10.0-20.0); Blood Urea Nitrogen 18 mg/dL (9-23)
[2025-01-29 23:24] LABS: Chloride 92 mmol/L (98-107); Glucose 108 mg/dL (74-106); Sodium 128 mmol/L (136-145)
--- NOTE | 2025-01-29 23:44 | DVH ---
EXAM: CT HEAD WITHOUT CONTRAST INDICATION: headache, hi bp TECHNIQUE: CT of the head without intravenous contrast. Radiation Dose : 1. Head: CT Dose: CTDI volume is 56 mGy. Dose-length product is 1013 mGy*cm The dose indicators for CT are the volume Computed Tomography (CT) Dose Index (CTDIvol) and the Dose Length Product (DLP), and are measured in units of mGy and mGy-cm, respectively. These indicators are not patient dose, but values generated from the CT scanner acquisition factors. The report includes radiation exposure data for exposures received during this examination. COMPARISON: HEAD WITHOUT CONTRAST on DOS: 10/22/22, HEAD WITHOUT CONTRAST on DOS: 12/01/21 FINDINGS: There is no evidence of acute intracranial hemorrhage, extra-axial collection, mass effect, midline s hift, herniation or hydrocephalus. The ventricles, sulci and cisterns are age appropriate. The rossi-white differentiation is intact. Patchy periventricular and subcortical white matter hypoattenuation is nonspecific but may be related to small vessel ischemic disease. The visualized paranasal sinuses and mastoid air cells are clear. The surrounding soft tissues and osseous structures are unremarkable. IMPRESSION: 1. No acute intracranial abnormality. Radiation optimization: All CT scans at this facility use at least one of these dose optimization k[place] hniques: automated exposure control mA and/or kV adjustment per patient size (includes targeted exam s where dose is matched to clinical indication) or iterative reconstruction.
--- NOTE | 2025-01-29 23:49 | DVH ---
CHEST RADIOGRAPH Indication: sob Technique: Single frontal view of the chest was obtained COMPARISON: CHEST PORTABLE on DOS: 10/22/22, CXRP on DOS: 10/22/22, CHEST XRAY 1 VIEW on DOS: 12/03/21, CHEST PORTABLE on DOS: 12/02/21 FINDINGS: Lines and Tubes: None Lungs: Bibasilar atelectasis/ scarring. Superimposed pneumonia is difficult to exclude Pleura: No effusion. No pneumothorax. Cardiomediastinal contours: Unremarkable Bones: Unremarkable IMPRESSION: 1. Bibasilar atelectasis/ scarring. Superimposed pneumonia is difficult to exclude
[2025-01-30 02:38] LABS: Urine Bacteria FEW /hpf (None Seen); Urine Blood 3+ /uL (Negative); Urine Clarity Clear (Clear); Urine Protein, UAD 1+ (Negative); Urine Specific Gravity 1.012 (1.001-1.035); Urine Squamous Epithelial Cell FEW /hpf (<5); Urine Urobilinogen Normal (Negative); Urine WBC 88 /HPF (0-3); Urine pH 6.5 (5.0-9.0)
[2025-01-30 02:40] LABS: Urine Color STRAW (Yellow)
[2025-01-30] MEDS ORDERED: CEPH500C PO (03:52)
[2025-01-30] MEDS: hydrALAZINE HCL 20 MG/ML VL IV ONE (03:53)
[2025-01-30] MEDS: SODIUM CHLORIDE 0.9% 1,000 ML IV ONE (03:56)
[2025-01-30 04:02] VITALS: BP 149/75; PULSE 79; RESP 18; TEMP 98.5; O2SAT 98
[2025-01-30] MEDS: ACETAMINOPHEN 325 MG TAB PO ONE (04:02)
[2025-01-30] MEDS: cefTRIAXone 1GM/50ML D5W 50 ML IV ONE (04:02)
--- NOTE | 2025-01-30 05:41 | ECG ---
[facility] Test Date: 2025-01-29 Test Time: 22:01:16 Pat Name: JUDITH MEDINA Department: ED Room: Gender: M Supervisor Instrument Mechanics: DENNIS : 1940 Requested By: BREANN GARCIA Order Number: [id number] Reading MD: Galileo Redman Measurements Intervals [place] Rate: 81 P: 69 CA: 170 QRS: -39 QRSD: 91 T: 50 QT: 382 QTc: 444 Interpretive Statements Sinus rhythm Left axis deviation Abnormal R-wave progression, early transition Electronically Signed On 02-03-2025 17:28:30 PST by Galileo Redman Please click the below link to view image of tracing.
== END 2025-01-30 04:47 | disposition home or self-care (01) ==
LOC: ER 21:56 → EDBD 21:56 → ER 01-30 04:47
DX: N39.0 Urinary tract infection, site not specified (principal); E11.9 Type 2 diabetes mellitus without complications; E78.5 Hyperlipidemia, unspecified; I10 Essential (primary) hypertension; Z79.899 Other long term (current) drug therapy; Z98.890 Other specified postprocedural states
CPT/HCPCS: 36415; 70450; 71045; 80048; 81001; 83880; 84484; 85025; 93005; 96365; 99285; J0696; J7030

== ENCOUNTER 2025-10-03 01:35 | Emergency (ER) | payer OTHER, MEDICAID ==
[~2025-10-03] VITALS: Ht 162.6 cm; Wt 75.5 kg
[~2025-10-03 01:35] MED LIST changes: +CEPH500C PO
[2025-10-03 02:12] VITALS: TEMP 97.9
[2025-10-03] MEDS: LISINOPRIL 20 MG TAB PO ONE (02:12)
--- NOTE | 2025-10-03 02:17 | ED.PDOC ---
HPI Comments 84-year-old male brought in by his son who got worried after he noted that his blood pressure was elevated at home. Patient denies chest pain. . Patient denies shortness of breath. No headache. Chief Complaint: High Blood Pressure Time Seen by MD: 01:44 Primary Care Provider: NONE Allergies: Coded Allergies: NO KNOWN ALLERGIES (Unverified , 12/08/16) Home Meds Active Scripts Cephalexin Monohydrate (Cephalexin) 500 Mg Cap, 1 CAP PO QID for 10 Days, #40 CAP Prov:BREANN LOPEZ MD 01/30/25 Tramadol Hcl (Tramadol Hcl) 50 Mg Tab, 50 MG PO Q12HP PRN, #15 TAB Prov:RAFAELA EDDY 01/13/25 Acetaminophen (Acetaminophen) 500 Mg Tab, 500 MG PO Q4HP PRN, #30 TAB Prov:RAFAELA EDDY 01/13/25 Levofloxacin Hemihydrate (LEVAQUIN 500 MG) 500 Mg Tab, 1 TAB PO DAILY for 9 Days, #9 TAB Prov:RAFAELA EDDY PAC 01/13/25 Reported Medications Atorvastatin Calcium (ATORVASTATIN CALCIUM) 40 Mg Tab, 40 MG PO DAILY, TAB 12/02/21 Temazepam (Temazepam) 15 Mg Cap, 15 MG PO, CAP 12/02/21 Losartan Potassium (Losartan Potassium) 100 Mg Tab, 100 MG PO, TAB 12/02/21 Metoprolol Succinate (Metoprolol Succinate Er) 25 Mg Tab, 25 MG PO, TAB 12/02/21 Metformin Hydrochloride (Metformin Hcl) 500 Mg Tab, 500 MG PO, TAB 12/02/21 Amlodipine Besylate (NORVASC TABLET) 5 Mg Tb, 5 MG GT, TAB 12/02/21 Information Source: Patient, Relative Mode of Arrival: Ambulatory Severity: Moderate Timing: Hours Duration: Since onset Past Medical History PAST MEDICAL HISTORY: DM, High Lipids, HTN Surgical History: Hernia Repair Family History Family History: Reviewed,noncontributory to illness Social History Smoker: Non-Smoker Alcohol: Denies ETOH Use Drugs: Denies Drug Use Lives In: Home Constitutional: reports: fatigue All Other Systems: Reviewed and Negative Physical Exam Exam Comments Elderly General Appearance: No Apparent Distress, Normal HEENT: Normal ENT Inspection, Pharynx Normal, TMs Normal Neck: Full Range of Motion, Non-Tender, Normal, Normal Inspection Respiratory: Chest Non-Tender, Lungs Clear, No Accessory Muscle Use, No Respiratory Distress, Normal Breath Sounds Cardiovascular: No Edema, No JVD, No Murmur, No Gallop, Normal Peripheral Pulses, Regular Rate/Rhythm Breast Exam: Deferred Gastrointestinal: No Organomegaly, Non Tender, No Pulsatile Mass, Normal Bowel Sounds, Soft Genitalia: Deferred Pelvic: Deferred Rectal: Deferred Extremities: No calf tenderness, Normal capillary refill, Normal inspection, Normal range of motion, Non-tender, No pedal edema Musculoskeletal : Apperance: Normal Neurologic: Alert, fitness assistant II-XII nml as Tested, No Motor Deficits, Normal Affect, Normal Mood, No Sensory Deficits Cerebellar Function: Normal Reflexes: Normal Skin: Dry, Normal Color, Warm Lymphatic: No Adenopathy Was a procedure done? Was a procedure done?: No CP Differential Dx Differential Diagnosis: A-fib, A-Flutter, Angina, Pulmonary Embolus, Sinus Tachycardia, Torsades De Pointes, V-Fib, V-Tach, WPW, Other, N/A X-Ray, Labs, Meds, VS Vital Signs Date Time Temp Pulse Resp B/P (MAP) Pulse Ox O2 Delivery O2 Flow Rate FiO2 10/03/25 04:31 82 17 157/88 (111) 97 10/03/25 02:53 85 10/03/25 02:15 Room Air* 0 21 10/03/25 02:12 97.9 85 18 162/93 (116) 96 97.9 10/03/25 02:12 162/93 10/03/25 01:55 86 10/03/25 01:40 97.5 94 16 168/97 97 97.5 Lab Test 10/03/25 02:56 10/03/25 02:02 Range/Units Troponin I High Sensitivity 5 3 L </=54 ng/L White Blood Count 6.6 4.4-10.8 10^3/uL Red Blood Count 4.40 L 4.5-5.90 10^6/uL Hemoglobin 13.5 13.5-17.5 g/dL Hematocrit 39.4 L 41.0-53.0 % Mean Corpuscular Volume 89.6 80.0-100.0 fL Mean Corpuscular Hemoglobin 30.8 28.0-32.0 pg Mean Corpuscular Hemoglobin Concent 34.3 32.0-36.0 g/dL Red Cell Distribution Width 15.2 H 11.8-14.3 % Platelet Count 289 140-450 10^3/uL Mean Platelet Volume 7.4 6.9-10.8 fL Neutrophils (%) (Auto) 59.7 37.0-80.0 % Lymphocytes (%) (Auto) 25.6 10.0-50.0 % Monocytes (%) (Auto) 13.2 H 0.0-12.0 % Eosinophils (%) (Auto) 0.9 0.0-7.0 % Basophils (%) (Auto) 0.6 0.0-2.0 % Neutrophils # (Auto) 3.9 1.6-8.6 10 ^3/uL Lymphocytes # (Auto) 1.7 0.4-5.4 10 ^3/uL Monocytes # (Auto) 0.9 0-1.3 10 ^3/uL Eosinophils # (Auto) 0.1 0-0.8 10 ^3/uL Basophils # (Auto) 0 0-0.2 10 ^3/uL Nucleated Red Blood Cells 0.0 % Sodium Level 137 136-145 mmol/L Potassium Level 3.7 3.5-5.1 mmol/L Chloride Level 101 98-107 mmol/L Carbon Dioxide Level 26 20-31 mmol/L Anion Gap 10 5-15 Blood Urea Nitrogen 12 9-23 mg/dL Creatinine 0.80 0.700-1.30 mg/dL Glomerular Filtration Rate Calc 88 >90 mL/min BUN/Creatinine Ratio 15.0 10.0-20.0 Serum Glucose 124 H 74-106 mg/dL Calcium Level 9.8 8.7-10.4 mg/dL Total Bilirubin 0.6 0.2-1.0 mg/dL Aspartate Amino Transferase (AST) 29 13-40 U/L Alanine Aminotransferase (ALT) 32 7-40 U/L Alkaline Phosphatase 87 46-116 U/L Total Protein 8.3 H 5.7-8.2 g/dL Albumin 4.6 3.2-4.8 g/dL Current Medications Medications (Trade) Dose Ordered Sig/Doretha Route Start Time Stop Time Status Last Admin Lisinopril (Zestril Tablet) 20 mg ONCE ONCE PO 10/03/25 02:00 10/03/25 02:01 DC 10/03/25 02:12 Time of 1ST Reevaluation: 02:16 Reevaluation 1ST: Improved Patient Education/Counseling: Diagnosis, Treatment Family Education/Counseling: Diagnosis, Treatment SEPSIS Sepsis Screen Date sepsis recognized/suspect: Oct 03, 2025 Time Sepsis recognized/suspect: 014 Recent Procedure: No On Antibiotic Therapy: No Respiratory Rate >20: No Heart Rate >90: Yes Temp<36 C (96.8 F) or >38.3 C: No SBP <90 or MAP <65 mmHG: No New Acute Mental Status Change: No Is the patient on CPAP, BIPAP,: No Vital Signs Date Time Temp Pulse Resp B/P (MAP) Pulse Ox O2 Delivery O2 Flow Rate FiO2 10/03/25 04:31 82 17 157/88 (111) 97 10/03/25 02:53 85 10/03/25 02:15 Room Air* 0 21 10/03/25 02:12 97.9 85 18 162/93 (116) 96 97.9 10/03/25 02:12 162/93 10/03/25 01:55 86 10/03/25 01:40 97.5 94 16 168/97 97 97.5 Laboratory Tests Test 10/03/25 02:02 White Blood Count 6.6 10^3/uL (4.4-10.8) Medications Medications Dose Ordered Sig/Doretha Route Start Time Stop Time Status Last Admin Dose Admin Lisinopril 20 mg ONCE ONCE PO 10/03/25 02:00 10/03/25 02:01 DC 10/03/25 02:12 Departure 1 Departure Time of Disposition: 04:00 Impression: Primary Impression: Hypertension Disposition: 01 HOME / SELF CARE / HOMELESS Condition: Stable Discharged With: Self, Relative Critical Care Note Critical Care Time?: No Stability Stability form required: No Heart Score Heart Score: Heart Score Response (Comments) Value History Slightly Suspicious 0 EKG Normal 0 Age >65 2 Risk Factors 1 or 2 risk factors 1 Troponin Normal limit 0 Total 3 SYDNEY COUCH MD Oct 03, 2025 02:17
[2025-10-03 02:51] LABS: Hematocrit 39.4 % (41.0-53.0); Hemoglobin 13.5 g/dL (13.5-17.5); Mean Corpuscular Hemoglobin 30.8 pg (28.0-32.0); Mean Corpuscular Volume 89.6 fL (80.0-100.0); Nucleated Red Blood Cells % 0.0 %
--- NOTE | 2025-10-03 02:54 | ECG ---
[facility] Test Date: 2025-10-03 Test Time: 02:53:59 Pat Name: JUDITH MEDINA Department: ED Room: Gender: M Devops Consultant: : 1940 Requested By: SYDNEY COUCH Order Number: [id number] Reading MD: Galileo Redman Measurements Intervals [place] Rate: 85 P: 70 [place]: 167 QRS: -22 QRSD: 91 T: 24 QT: 379 QTc: 451 Interpretive Statements Sinus rhythm Abnormal R-wave progression, early transition Left ventricular hypertrophy Electronically Signed On 10-08-2025 10:07:57 PST by Galileo Redman Please click the below link to view image of tracing.
[2025-10-03 03:15] LABS: Alanine Aminotransferase 32 U/L (7-40); Albumin 4.6 g/dL (3.2-4.8); Alkaline Phosphatase 87 U/L (46-116); Anion Gap 10 (5-15); BUN/Creatinine Ratio 15.0 (10.0-20.0); Bilirubin, Total 0.6 mg/dL (0.2-1.0); Blood Urea Nitrogen 12 mg/dL (9-23); Calcium 9.8 mg/dL (8.7-10.4); Carbon Dioxide 26 mmol/L (20-31); Chloride 101 mmol/L (98-107); Potassium 3.7 mmol/L (3.5-5.1); Sodium 137 mmol/L (136-145)
[2025-10-03 03:16] LABS: Glucose 124 mg/dL (74-106); Total Protein 8.3 g/dL (5.7-8.2)
[2025-10-03 04:31] VITALS: BP 157/88; PULSE 82; RESP 17; O2SAT 97
== END 2025-10-03 04:32 | disposition home or self-care (01) ==
LOC: ER 01:35
DX: I10 Essential (primary) hypertension (principal); E11.9 Type 2 diabetes mellitus without complications; Z79.899 Other long term (current) drug therapy; Z98.890 Other specified postprocedural states
CPT/HCPCS: 36415; 80053; 84484; 85025; 93005

== ENCOUNTER 2025-10-05 01:04 | Emergency (ER) | payer OTHER, MEDICAID ==
[~2025-10-05] VITALS: Ht 165.1 cm; Wt 164.0 kg
[2025-10-05 01:04] VITALS: TEMP 98.4
[2025-10-05] MEDS ORDERED: HYDR25TA88 PO (02:10)
--- NOTE | 2025-10-05 02:12 | ED.PDOC ---
History of Present Illness HPI Comments 84 yo M with past medical history of hypertension, diabetes presenting for evaluation of persistently elevated blood pressure over the past 3 days. Additional history is taken from the patient's son who arrives with him as well. Blood pressure is typically well controlled. He takes amlodipine, losartan, metoprolol. Reports compliance with his medications. Has had a dry cough over the past 2 weeks. However, denies chest pain, shortness of breath. Son states that he has given him some [id number] cough and cold medications, however, does not know specifically what he gave him, believes it may have been Robitussin. Patient was seen here 2 days ago and had labs that were within normal limits. Was then seated in urgent care less than 24 hours ago and was diagnosed with a urinary tract infection, given a prescription for antibiotics. Is scheduled to follow up with his primary care doctor in 1 week for re- evaluation. Son and patient state that they called 911 tonight because his systolic blood pressure was greater than 180 and it concerned them. Chief Complaint: High Blood Pressure Time Seen by MD: 01:26 Primary Care Provider: NONE Allergies: Coded Allergies: NO KNOWN ALLERGIES (Unverified , 12/08/16) Home Meds Active Scripts Cephalexin Monohydrate (Cephalexin) 500 Mg Cap, 1 CAP PO QID for 10 Days, #40 CAP Prov:BREANN LOPEZ MD 01/30/25 Tramadol Hcl (Tramadol Hcl) 50 Mg Tab, 50 MG PO Q12HP PRN, #15 TAB Prov:RAFAELA EDDY PAC 01/13/25 Acetaminophen (Acetaminophen) 500 Mg Tab, 500 MG PO Q4HP PRN, #30 TAB Prov:RAFAELA EDDY PAC 01/13/25 Levofloxacin Hemihydrate (LEVAQUIN 500 MG) 500 Mg Tab, 1 TAB PO DAILY for 9 Days, #9 TAB Prov:RAFAELA EDDY PAC 01/13/25 Reported Medications Atorvastatin Calcium (ATORVASTATIN CALCIUM) 40 Mg Tab, 40 MG PO DAILY, TAB 12/02/21 Temazepam (Temazepam) 15 Mg Cap, 15 MG PO, CAP 12/02/21 Losartan Potassium (Losartan Potassium) 100 Mg Tab, 100 MG PO, TAB 12/02/21 Metoprolol Succinate (Metoprolol Succinate Er) 25 Mg Tab, 25 MG PO, TAB 12/02/21 Metformin Hydrochloride (Metformin Hcl) 500 Mg Tab, 500 MG PO, TAB 12/02/21 Amlodipine Besylate (NORVASC TABLET) 5 Mg Tb, 5 MG GT, TAB 12/02/21 Mode of Arrival: EMS Past Medical History PAST MEDICAL HISTORY: DM, High Lipids, HTN Surgical History: Hernia Repair Family History Family History: Reviewed,noncontributory to illness Social History Smoker: Non-Smoker Alcohol: Denies ETOH Use Drugs: Denies Drug Use Lives In: Home Constitutional: denies: chills, diaphoresis, fatigue, fever, malaise, sweats, weakness, others EENTM: denies: blurred vision, double vision, ear bleeding, ear discharge, ear drainage, ear pain, ear ringing, eye pain, eye redness, hearing loss, mouth cayden n, mouth swelling, nasal discharge, nose bleeding, nose congestion, nose pain, photophobia, tearing, throat pain, throat swelling, voice changes, others Respiratory: denies: cough, hemoptysis, orthopnea, SOB at rest, shortness of breath, SOB with excertion, stridor, wheezing, others Cardiovascular: denies: chest pain, dizzy spells, diaphoresis, Dyspnea on exertion, edema, irregular heart beat, left arm pain, lightheadedness, palpitations, PND, syncope, others Gastrointestinal: denies: abdomen distended, abdominal pain, blood streaked bowels, constipated, diarrhea, dysphagia, difficulty swallowing, hematemesis, melena, nausea, poor appetite, poor fluid intake, rectal bleeding, rectal pain, vomiting, others Genitourinary: denies: burning, dysuria, flank pain, frequency, hematuria, incontinence, penile discharge, penile sore, pain, testicle pain, testicle swelling, urgency, others Neurological: denies: dizziness, fainting, headache, left sided numbness, left sided weakness, numbness, paresthesia, pre-existing deficit, right sided numbness, right sided weakness, seizure, speech problems, tingling, tremors, weakness, others Musculoskeletal: denies: back pain, gout, joint pain, joint swelling, muscle pain, muscle stiffness, neck pain, others Integumetry: denies: bruises, change in color, change in hair/nails, dryness, laceration, lesions, lumps, rash, wounds, others Allergic/Immunocompromised: denies: Difficulty Healing, Frequent Infections, Hives, Itching, others Hematologic/Lymphatic: denies: anemia, blood clots, easy bleeding, easy bruising, swollen glands, others Endocrine: denies: excessive hunger, excessive sweating, excessive thirst, excessive urination, flushing, intolerance to cold, intolerance to heat, unexplained weight gain, unexplained weight loss, others Psychiatric: denies: anxiety, bipolar disorder, depression, hopeless, panic disorder, schizophrenia, sleepless, suicidal, others All Other Systems: Reviewed and Negative Physical Exam General Appearance: None, Normal HEENT: Normal ENT Inspection, Pharynx Normal Neck: None, Non-Tender, Normal, Normal Inspection Respiratory: No Accessory Muscle Use, No Respiratory Distress, Normal Breath Sounds Cardiovascular: No Edema, No JVD, No Murmur, Normal Peripheral Pulses, Regular Rate/Rhythm Breast Exam: Deferred Gastrointestinal: Non Tender, Soft Genitalia: Deferred Pelvic: Deferred Rectal: Deferred Extremities: Normal capillary refill, Normal inspection, Normal range of motion, Non-tender Neurologic: Alert, trader fixed income II-XII nml as Tested, No Motor Deficits, No Sensory Deficits Cerebellar Function: Normal Reflexes: NOT DONE Skin: Normal Color Lymphatic: No Adenopathy Was a procedure done? Was a procedure done?: No EKG EKG : Pulse Rate (adult): 77 [facility] [place]: Normal Cardiac Rhythm: NSR Hypertrophy: None ST: Normal Comments Left anterior fascicular block Differential Dx Considerations may include: Asymptomatic hypertension vs medication interaction X-Ray, Labs, Meds, VS Vital Signs Date Time Temp Pulse Resp B/P (MAP) Pulse Ox O2 Delivery O2 Flow Rate FiO2 10/05/25 01:14 77 10/05/25 01:04 98.4 80 18 166/87 96 98.4 Time of 1ST Reevaluation: 01:59 Reevaluation 1ST: Improved Patient Education/Counseling: Diagnosis, Treatment, Prognosis Family Education/Counseling: Diagnosis, Treatment, Need For Follow Up SEPSIS Sepsis Screen Date sepsis recognized/suspect: Oct 05, 2025 Time Sepsis recognized/suspect: 010 Recent Procedure: No On Antibiotic Therapy: No Respiratory Rate >20: No Heart Rate >90: No Temp<36 C (96.8 F) or >38.3 C: No SBP <90 or MAP <65 mmHG: No New Acute Mental Status Change: No Is the patient on CPAP, BIPAP,: No Physician Orders Electrocardigram (10/05/25 01:28) Vital Signs Date Time Temp Pulse Resp B/P (MAP) Pulse Ox O2 Delivery O2 Flow Rate FiO2 10/05/25 01:14 77 10/05/25 01:04 98.4 80 18 166/87 96 98.4 Departure 1 Departure Time of Disposition: 01:59 (84-year-old male with past medical history of hypertension, diabetes presenting for evaluation of elevated blood pressure over the past 3 days. Upon arrival systolic blood pressure in the 160s, not within critical range. Not reporting any other pain, discomfort. Was just seen here 2 days ago and had labs that were within normal limits. Does not require repeat labs. Was also seen at an urgent care less than 24 hours gone diagnosed with a UTI. Patient has been taking some cough and cold medication, however, son does not know what he gave him. Consider possible medication transiently elevating his blood pressure. Patient concerned given the elevated blood pressure with normal blood pressure regularly. Patient given a 1 time oral hydralazine dose. Will then be given a prescription to have some hydralazine tabs to take as needed if systolic blood pressure exceeds 170 at home. Patient is stable for discharge home with son. Already has an outpatient follow up with his primary care doctor in 1 week.) Impression: Primary Impression: Uncontrolled hypertension Disposition: HOME / SELF CARE / HOMELESS Condition: Stable Additional Instructions: Please keep a log of your blood pressure over the upcoming days so that you can share this with your primary care doctor. You were given a prescription for hydralazine which you can take each day as needed if your systolic blood pressures greater than 170. e-Prescriptions Hydralazine Hcl (Hydralazine Hcl) 25 Mg Tab 25 MG PO DAILY PRN, #14 TAB Prov: DAYAMI BURGER MD 10/05/25 Discharged With: Self Critical Care Note Critical Care Time?: No Stability Stability form required: DAYAMI Palencia MD Oct 05, 2025 02:12
[2025-10-05 02:27] VITALS: PULSE 84; RESP 16; O2SAT 98
[2025-10-05 02:30] VITALS: BP 165/91; PULSE 84; RESP 16; O2SAT 98
--- NOTE | 2025-10-05 06:54 | ECG ---
[facility] Test Date: 2025-10-05 Test Time: 01:14:56 Pat Name: JUDITH MEDINA Department: [facility] ED Patient ID: [facility]-[id number] Room: Gender: M Button Tufter: óscar : 1940 Requested By: DAYAMI BURGER Order Number: [id number] Reading MD: Galileo Redman Measurements Intervals [place] Rate: 77 P: 69 MI: 164 QRS: -45 QRSD: 97 T: 60 QT: 395 QTc: 448 Interpretive Statements Sinus rhythm Atrial premature complex Left anterior fascicular block Abnormal R-wave progression, early transition Left ventricular hypertrophy Electronically Signed On 10-08-2025 10:55:13 PST by Galileo Redman Please click the below link to view image of tracing.
== END 2025-10-05 02:27 | disposition home or self-care (01) ==
LOC: EDBD 01:04 → ER 01:04
DX: I10 Essential (primary) hypertension (principal); E11.9 Type 2 diabetes mellitus without complications; Z79.899 Other long term (current) drug therapy; Z98.890 Other specified postprocedural states
CPT/HCPCS: 93005